=== PATIENT | female | born 1930 | race Caucasian/White ===

== ENCOUNTER 2016-06-21 15:40 | Emergency (ER) | payer MEDICARE ==
--- NOTE | 2016-06-21 16:17 | CT ---
Exam: CT head without contrast COMPARISON: 03/12/2008 INDICATION: Ground-level fall, history of intracranial hemorrhage. TECHNIQUE: CT examination of the head was obtained without contrast. FINDINGS: There is a very large soft tissue hematoma over the left side of the and head and periorbital region. No underlying fracture is identified. There is no retrobulbar hematoma. There is no acute intracranial hemorrhage. There is no abnormal intra or extra-axial fluid collection. Cortical white-white matter differentiation is maintained and there is no mass effect or midline shift. There are periventricular and deep white matter hypodensities, compatible with chronic small vessel ischemic changes. Ventricles are mildly prominent. Rajesh holes are noted within the frontal bones, new since 2008 exam. There is no depressed skull fracture. The visualized paranasal sinuses and mastoid air cells are well aerated. Dense intracranial vascular calcifications are present. IMPRESSION: No acute intracranial abnormality. Large soft tissue hematoma without underlying fracture. Report was uploaded to the EMR at 1613 hours 06/21/2016.
--- NOTE | 2016-06-21 16:24 | CT ---
Exam: CT cervical spine without contrast COMPARISON: None INDICATION: Ground-level fall. TECHNIQUE: CT examination of the cervical spine was obtained without contrast. FINDINGS: Osteopenia. There is trace anterolisthesis of C3 on C4. Sagittal alignment is otherwise maintained. Atlantoaxial and atlantooccipital relationships are maintained. There is a broad-based dextroconvex curvature of the cervical spine. There is no prevertebral soft tissue swelling. No acute fracture is identified. There is multilevel degenerative disc disease, most prominent at C4-5 and C5-6. Facet arthropathy is most pronounced on the left at C4-5. There is multilevel neural foraminal narrowing most prominent on the right at C6-7. Limited evaluation of the lung apices demonstrates no pneumothorax. The pleural calcifications are noted within the left lung apex. Paravertebral soft tissues within normal limits. IMPRESSION: No acute osseous abnormality in the cervical spine. Chronic changes as above. Report was uploaded to the EMR at 4:20 PM 06/21/2016.
[2016-06-21] MEDS ORDERED: ACETAMINOPHEN 500 MG TABLET ONE (16:43)
== END 2016-06-21 17:25 | disposition home or self-care (01) ==
LOC: ED 15:40
DX: S00.93XA Contusion of unspecified part of head, initial encounter (principal); W18.30XA Fall on same level, unspecified, initial encounter; Y92.9 Unspecified place or not applicable; M06.9 Rheumatoid arthritis, unspecified; Z79.899 Other long term (current) drug therapy; Z79.82 Long term (current) use of aspirin; Z88.2 Allergy status to sulfonamides; Z91.040 Latex allergy status; Z91.048 Other nonmedicinal substance allergy status
CPT/HCPCS: 72125; 70450; 99283 ×2; A9270